=== PATIENT | female | born 1985 ===

== ENCOUNTER 2021-12-02 00:13 | Emergency (ER) | payer SELFPAY ==
[2021-12-02] MEDS ORDERED: ONDANSETRON 4 MG/2 ML VIAL ONE (00:41)
[2021-12-02] MEDS ORDERED: MORPHINE 4 MG/ML SYR ONE (00:41)
[2021-12-02 00:55] LABS: Absolute Lymphocytes (CBC) 3.1 K/uL (0.7-4.9); Hematocrit 36.4 % (36.0-45.0); Lymphocytes % 34.9 % (15.3-44.8); MPV 6.8 fL (7.6-11.3); RBC Red Blood Cell Count 4.27 M/uL (3.86-4.86)
[2021-12-02] MEDS ORDERED: NA CHLORIDE 0.9% 50 ML ONE (01:03)
[2021-12-02] MEDS ORDERED: PROMETHAZINE INJ 25 MG/ML AMP ONE (01:03)
[2021-12-02] MEDS ORDERED: HYDROMORPHONE HCL 0.5 MG/0.5 ML INJ ONE (01:12)
[2021-12-02 01:17] LABS: Albumin 3.2 g/dL (3.4-5.0); Bilirubin Total 0.1 mg/dL (0.2-1.0); Potassium 3.4 mmol/L (3.5-5.1)
[2021-12-02 01:50] LABS: Urine Blood Negative (Negative); Urine Glucose Negative (Negative); Urine Protein Negative (Negative); Urine Specific Gravity 1.015 (1.005-1.030); Urine pH 6.5 (5.0-7.0)
--- NOTE | 2021-12-02 02:14 | ER ---
Nurse's Notes [facility] Name: Dawood Velasco Age: 36 yrs Sex: Female : 1985 Arrival Date: 12/02/2021 Time: 00:18 Bed 7 Private MD: Diagnosis: Abdominal pain, unspecified;Nausea with vomiting, unspecified Presentation: 12/02 00:21 Chief complaint: Patient states: abdominal pain right side with vomiting since today. st1 Coronavirus screen: Vaccine status: Patient reports receiving the 2nd dose of the covid vaccine. Moderna. Ebola Screen: No symptoms or risks identified at this time. Initial Sepsis Screen: Does the patient meet any 2 criteria?. Risk Assessment: Do you want to hurt yourself or someone else? Patient reports no desire to harm self or others. Onset of symptoms was December 02, 2021. 00:21 Method Of Arrival: Ambulatory st1 00:21 Acuity: STUART 3 st1 00:44 Initial Sepsis Screen: Does the patient have a suspected source of infection? No. st1 Patient's initial sepsis screen is negative. Triage Assessment: 00:23 GI: Reports lower abdominal pain, nausea, vomiting. st1 00:43 General: Appears distressed, uncomfortable, obese, well groomed, Behavior is calm, st1 cooperative. 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 - Social history:: Smoking status: Patient reports the use of cigarette tobacco products, 3 cigarettes per day , Patient/guardian denies using alcohol, street drugs, IV drugs. - Family history:: not pertinent. - Hospitalizations: : No recent hospitalization is reported. Screenin:40 Abuse screen: Denies threats or abuse. Nutritional screening: No deficits noted. st1 Tuberculosis screening: No symptoms or risk factors identified. Fall Risk None identified. No fall in past 12 months (0 pts). No secondary diagnosis (0 pts). IV access (20 points). Ambulatory Aid- None/Bed Rest/Nurse Assist (0 pts). Gait- Normal/Bed Rest/Wheelchair (0 pts) Mental Status- Oriented to own ability (0 pts). Total Cardona Fall Scale indicates No Risk (0-24 pts). Assessment: 00:43 GI: Bowel sounds present X 4 quads. Abdomen is tender to palpation in right side. st1 01:06 GI: Pt is actively vomiting dry heaves. kd3 01:06 Pain: Complains of pain in abdomen Pain currently is 10 out of 10 on a pain scale. kd3 Vital Signs: 00:21 Weight 108.86 kg; Height 5 ft. 4 in. (162.56 cm); Pain 9/10; st1 00:32 BP 154 / 103; Pulse 119; Resp 16; Temp 98.5; Pulse Ox 98% on R/A; Pain 9/10; st1 02:12 BP 112 / 91; Pulse 102; Resp 19; Pulse Ox 98% ; kd3 00:21 Body Mass Index 41.20 (108.86 kg, 162.56 cm) st1 ED Course: 00:18 Patient arrived in ED. ag3 00:19 Sathya Santiago MD is Attending Physician. rn 00:23 Triage completed. st1 00:23 Arm band placed on right wrist. st1 00:36 Ayana Vila, MILDRED is Primary Nurse. kd3 00:38 CBC with Diff Sent. st1 00:38 CMP Sent. st1 00:38 Inserted saline lock: 20 gauge in right antecubital area, using aseptic technique. st1 00:39 Lipase Sent. st1 00:43 Patient has correct armband on for positive identification. Placed in gown. Bed in low st1 position. Call light in reach. Side rails up X 1. Pulse ox on. NIBP on. 01:06 CBC with Diff Sent. kd3 01:06 CMP Sent. kd3 01:06 Lipase Sent. kd3 01:44 CT Abd/Pelvis - IV Contrast Only In Process Unspecified. EDMS 02:19 No provider procedures requiring assistance completed. IV discontinued, intact, st1 bleeding controlled, No redness/swelling at site. Pressure dressing applied. Administered Medications: 00:42 Drug: Zofran (Ondansetron) 4 mg Route: IVP; Site: right antecubital; kd3 01:05 Follow up: Response: No adverse reaction; Nausea unchanged kd3 01:49 Follow up: Response: No adverse reaction st1 00:42 Drug: morphine 4 mg Route: IVP; Site: right antecubital; kd3 01:06 Follow up: Response: No adverse reaction; Pain is unchanged, physician notified; RASS: kd3 Agitated (+2) 01:50 Follow up: Response: No adverse reaction; Pain is decreased st1 01:05 Drug: Phenergan (promethazine) 12.5 mg Route: IVP; Site: right antecubital; kd3 01:49 Follow up: Response: No adverse reaction; Nausea is decreased st1 01:14 Drug: Dilaudid (HYDROmorphone) 1 mg Route: IVP; Site: right antecubital; kd3 01:50 Follow up: Response: No adverse reaction; Pain is decreased st1 02:20 Not Given (Patient ): Phenergan (promethazine) 12.5 mg IVP once st1 Outcome: 02:13 Discharge ordered by . rn 02:19 Condition: improved st1 02:19 Discharge instructions given to patient, Instructed on discharge instructions, follow up and referral plans. no drinking with medication, medication usage, Demonstrated understanding of instructions, follow-up care, medications, Prescriptions given X 1. 02:20 Discharged to home ambulatory. st1 02:21 Patient left the ED. st1 Signatures: Dispatcher [employer] EDMS Sathya Santigao MD MD rn Gomez, Alice ag3 Doucette, Kyli, RN RN kd3 Debi Estrella RN RN st1
--- NOTE | 2021-12-02 02:14 | EDPHYS ---
Physician Documentation [facility] Name: Dawood Velasco Age: 36 yrs Sex: Female : 1985 Arrival Date: 12/02/2021 Time: 00:18 Bed 7 Private MD: ED Physician Sathya Santiago HPI: 12/02 00:26 This 36 yrs old Female presents to ER via Ambulatory with complaints of Abdominal Pain. rn 00:26 The patient presents with abdominal pain in the lower abdomen. Onset: The rn symptoms/episode began/occurred today. The symptoms do not radiate. Associated signs and symptoms: Pertinent positives: nausea and vomiting. 00:26 The symptoms are described as achy, crampy, intermittent, sharp. Modifying factors: The rn symptoms are alleviated by nothing, the symptoms are aggravated by touching the area. Severity of pain: At its worst the pain was moderate in the emergency department the pain is unchanged. The patient has not experienced similar symptoms in the past. The patient has not recently seen a physician. 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 - Social history:: Smoking status: Patient reports the use of cigarette tobacco products, 3 cigarettes per day , Patient/guardian denies using alcohol, street drugs, IV drugs. - Family history:: not pertinent. - Hospitalizations: : No recent hospitalization is reported. ROS: 00:26 Constitutional: Negative for fever, chills, and weight loss, Eyes: Negative for injury, rn pain, redness, and discharge, Neck: Negative for injury, pain, and swelling, Cardiovascular: Negative for chest pain, palpitations, and edema, Respiratory: Negative for shortness of breath, cough, wheezing, and pleuritic chest pain, Abdomen/GI: + abd pain/nausea/vomiting Back: Negative for injury and pain, : Negative for injury, bleeding, discharge, and swelling, MS/Extremity: Negative for injury and deformity, Skin: Negative for injury, rash, and discoloration, Neuro: Negative for headache, weakness, numbness, tingling, and seizure. 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 Eyes: Periorbital areas with no swelling, redness, or edema. Cardiovascular: Tachycardic, regular. Respiratory: No increased work of breathing, no retractions or nasal flaring. Abdomen/GI: soft, no RUQ or epigastric tenderness. + mild right mid-abdominal tenderness and RLQ tenderness. Skin: Warm, dry MS/ Extremity: Pulses equal, no cyanosis. Neuro: Awake and alert, GCS 15 Vital Signs: 00:21 Weight 108.86 kg; Height 5 ft. 4 in. (162.56 cm); Pain 9/10; st1 00:32 BP 154 / 103; Pulse 119; Resp 16; Temp 98.5; Pulse Ox 98% on R/A; Pain 9/10; st1 02:12 BP 112 / 91; Pulse 102; Resp 19; Pulse Ox 98% ; kd3 00:21 Body Mass Index 41.20 (108.86 kg, 162.56 cm) st1 MDM: 00:19 Patient medically screened. rn 00:46 ED course: Pt states feels different from previous kidney stone. . rn 00:46 ED course: Denies any sick contacts.. rn 02:12 Differential diagnosis: appendicitis, bowel obstruction, diverticulitis, gastritis, rn gastroesophageal reflux disease, non-specific abd pain, pancreatitis, Peptic Ulcer Disease, Pyelonephritis, Ureterolithiasis, urinary tract infection. Data reviewed: vital signs, nurses notes, lab test result(s), radiologic studies, CT scan, and as a result, I will discharge patient. Counseling: I had a detailed discussion with the patient and/or guardian regarding: the historical points, exam findings, and any diagnostic results supporting the discharge/admit diagnosis, lab results, radiology results, the need for outpatient follow up, to return to the emergency department if symptoms worsen or persist or if there are any questions or concerns that arise at home. Response to treatment: the patient's symptoms have mildly improved after treatment, and as a result, I will discharge patient. Special discussion: Based on the patient's Hx, exam, and Dx evaluation, there is no indication for emergent surgery or inpatient Tx. It is understood by the patient/guardian that if the Sx's persist or worsen they need to return immediately for re-evaluation. I discussed with the patient/guardian in detail that at this point there is no indication for admission to the hospital. It is understood, however, that if the symptoms persist or worsen the patient needs to return immediately for re-evaluation. 02:18 ED course: Offered oral pain medication and IV phenergan to keep her comfortable rn through the night, patient declines, appears much better, no acute findings in blood or CT abdomen. Return precautions given and understood. . 12/02 00:24 Order name: CBC with Diff; Complete Time: 01:22 rn 12/02 00:24 Order name: CMP; Complete Time: : rn 12/02 00:24 Order name: Lipase; Complete Time: : rn 12/02 00:24 Order name: CT Abd/Pelvis - IV Contrast Only rn 12/02 01:51 Order name: Urine Dipstick-Ancillary; Complete Time: 01:52 EDMS 12/02 00:24 Order name: IV Saline Lock; Complete Time: 00:39 rn 12/02 00:24 Order name: Labs collected and sent; Complete Time: 00:39 rn 12/02 00:24 Order name: Urine Dipstick-Ancillary (obtain specimen); Complete Time: 01:49 rn Administered Medications: 00:42 Drug: Zofran (Ondansetron) 4 mg Route: IVP; Site: right antecubital; kd3 01:05 Follow up: Response: No adverse reaction; Nausea unchanged kd3 01:49 Follow up: Response: No adverse reaction st1 00:42 Drug: morphine 4 mg Route: IVP; Site: right antecubital; kd3 01:06 Follow up: Response: No adverse reaction; Pain is unchanged, physician notified; RASS: kd3 Agitated (+2) 01:50 Follow up: Response: No adverse reaction; Pain is decreased st1 01:05 Drug: Phenergan (promethazine) 12.5 mg Route: IVP; Site: right antecubital; kd3 01:49 Follow up: Response: No adverse reaction; Nausea is decreased st1 01:14 Drug: Dilaudid (HYDROmorphone) 1 mg Route: IVP; Site: right antecubital; kd3 01:50 Follow up: Response: No adverse reaction; Pain is decreased st1 02:20 Not Given (Patient ): Phenergan (promethazine) 12.5 mg IVP once st1 Disposition Summary: 12/02/21 02:13 Discharge Ordered Location: Home rn Problem: new rn Symptoms: have improved rn Condition: Stable rn Diagnosis - Abdominal pain, unspecified rn - Nausea with vomiting, unspecified rn Followup: rn - With: Private Physician - When: As needed - Reason: Recheck today's complaints, Re-evaluation by your physician Discharge Instructions: - Discharge Summary Sheet rn - Abdominal Pain, Adult rn - Nausea and Vomiting, Adult rn - Pain Without a Known Cause rn Forms: - Medication Reconciliation Form rn - Thank You Letter rn - Antibiotic radio journalist - Prescription Opioid Use rn Prescriptions: - ondansetron 4 mg Oral tablet,disintegrating - take 1 tablet by ORAL route every 8-10 hours As needed; 10 tablet; Refills: 0, rn Product Selection Permitted Signatures: Dispatcher [employer] EDSathya Shanks MD MD rn Doucette, Kyli, RN RN kd3 Debi Estrella RN RN st1 Corrections: (The following items were deleted from the chart) 00:33 00:26 Constitutional: This is a well developed, well nourished patient who is awake, rn alert, ambulatory to room Head/Face: Normocephalic, atraumatic. Eyes: Periorbital areas with no swelling, redness, or edema. Cardiovascular: Regular rate and rhythm. No pulse deficits. Respiratory: No increased work of breathing, no retractions or nasal flaring. Abdomen/GI: Soft, non-tender, with normal bowel sounds. No distension or tympany. No guarding or rebound. No evidence of tenderness throughout. rn 00:39 00:24 Urine Test ordered. rn st1
[2021-12-02 02:49] VITALS: TEMP 98.5; O2SAT 98
[2021-12-02 02:51] VITALS: BP 112/91
--- NOTE | 2021-12-02 17:11 | RAD REPORT ---
EXAM DESCRIPTION: CT - Abdomen Pelvis W Contrast - 12/02/2021 6:46 am CLINICAL HISTORY: 36 years, Female, Abd pain;Nausea / vomiting COMPARISON: None. TECHNIQUE: Contrast-enhanced images of the abdomen and pelvis were performed utilizing 5 mm slice th ickness at 5 mm interval reconstruction from the lung bases to the ischial tuberosities after the adm inistration of IV contrast. In addition multiplanar reformats in the coronal and sagittal plane were obtained and reviewed. This exam was performed according to our departmental dose-optimization protocol, which includes auto mated exposure control, adjustment of the mA and/or kV according to patient size and/or use of iterat jb reconstruction technique. FINDINGS: The lung bases demonstrate to be clear. The liver, pancreas, spleen and adrenal glands demonstrate to be unremarkable, no focal lesions are n oted. Surgical clips within the gallbladder fossa correspond to previous cholecystectomy. There is no bilia ry duct dilatation. The kidneys demonstrate normal uptake of contrast media. No evidence for nephrolithiasis and/or hydro nephrosis. Grossly the unopacified stomach demonstrated is surgical suture corresponding to previous gastric byp ass sleeve. Otherwise the stomach, small bowel and large bowel demonstrate to be within normal limits . There is no evidence for bowel dilatation and/or free air. The appendix was not visualized alth ough no significant inflammatory changes are seen within the right lower quadrant. The urinary bladder demonstrate to be unremarkable. The uterus is absent. There are no adnexal mass es. The aorta demonstrate to be normal. There is no retroperitoneal lymphadenopathy. There is no evidence for ascites/or significant abnormal fluid collections. The rest of the soft tissue and bony structures are within normal limits. IMPRESSION: No acute intra-abdominal process. Status post cholecystectomy and hysterectomy. Status post gastric bypass sleeve. Electronically signed by: Prabhjot Argueta MD 12/02/2021 2:08 AM CDT Due to temporary technical issues with the PACS/Fluency reporting system, reports are being signed by the in house radiologists without review as a courtesy to insure prompt reporting. The interpreting radiologist is fully responsible for the content of the report.
== END 2021-12-02 02:21 | disposition home or self-care (01) ==
LOC: ER 00:13
DX: R10.30 Lower abdominal pain, unspecified (principal); R11.2 Nausea with vomiting, unspecified; Z72.0 Tobacco use; Z88.5 Allergy status to narcotic agent; Z88.6 Allergy status to analgesic agent
CPT/HCPCS: 36415; 74177; 80053; 81003; 83690; 85025; 96374; 96375; 99284; J1170; J2405; J2550; Q9967